=== PATIENT | female | born 2000 | race Caucasian/White ===

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

== ENCOUNTER 2021-07-22 11:16 | Outpatient (CLI) | payer BC, SELFPAY ==
[2021-07-28 02:07] LABS: Alternaria tenuis <0.10 kU/L (Class 0); Ash, White 0.51 kU/L (Class I); Aspergillus fumigatus <0.10 kU/L (Class 0); Bermuda Grass 3.14 kU/L (Class III); Birch 0.22 kU/L (Class 0/I); Black Walnut 0.39 kU/L (Class I); Cat Hair / Dander,Stand <0.10 kU/L (Class 0); Cedar, Mountain 0.41 kU/L (Class I); Cladosporium herbarum <0.10 kU/L (Class 0); Cockroach, American 0.35 kU/L (Class I); Cottonwood 0.22 kU/L (Class 0/I); D farinae Mite 0.65 kU/L (Class II); Dog Epithelia 0.25 kU/L (Class 0/I); Elm, American White 0.34 kU/L (Class I); Immunoglobulin E 135 IU/mL (6-495); Maple/Box Elder 0.48 kU/L (Class I); Mulberry, White 0.23 kU/L (Class 0/I); Oak, White 0.76 kU/L (Class II); Pecan 0.38 kU/L (Class I); Penicillium Notatum <0.10 kU/L (Class 0); Pigweed, Rough 0.43 kU/L (Class I); Ragweed, Short/Common 0.52 kU/L (Class I); Russian Thistle 0.48 kU/L (Class I); Sheep Sorrel 0.67 kU/L (Class II); Sycamore, American 0.58 kU/L (Class II)
[2021-07-28 15:35] LABS: Mouse Urine <0.10 kU/L (Class 0)
== END 2021-07-22 23:59 | disposition home or self-care (01) ==
PROVIDERS: Referring Provider Otolaryngology; Visit Provider Otolaryngology
DX: T78.40XA Allergy, unspecified, initial encounter (principal)
CPT/HCPCS: 36415; 82785; 86003

== ENCOUNTER 2021-07-31 09:06 | Outpatient (CLI) | payer BC, SELFPAY ==
[2021-08-07 19:07] LABS: Clam <0.10 kU/L (Class 0); Codfish <0.10 kU/L (Class 0); Corn 0.32 kU/L (Class I); Egg, White 0.16 kU/L (Class 0/I); Milk (Cow) 0.18 kU/L (Class 0/I); Peanut 0.56 kU/L (Class II); SCALLOP 0.23 kU/L (Class 0/I); Shrimp <0.10 kU/L (Class 0); Soybean 0.34 kU/L (Class I); Walnut, (Food) 0.23 kU/L (Class 0/I); Wheat 0.59 kU/L (Class II)
[2021-08-07 19:28] LABS: SESAME SEED 0.78 kU/L (Class II)
== END 2021-07-31 23:59 | disposition home or self-care (01) ==
LOC: LAB 09:09
PROVIDERS: Visit Provider Otolaryngology
DX: T78.40XA Allergy, unspecified, initial encounter (principal)
CPT/HCPCS: 36415; 86003

== ENCOUNTER → 2022-04-28 | Outpatient (CLI) | payer BC, SELFPAY ==
--- NOTE | 2022-04-28 15:58 | US_ITS ---
EXAM: US PELVIS TRANSABDOMINAL AND TRANSVAGINAL, COMPLETE CLINICAL INDICATION: OVARIAN CY TECHNIQUE: Transabdominal and transvaginal pelvic ultrasound was performed with grayscale and color Doppler imaging. Transvaginal imaging was used for better evaluation of the endometrium and adnexa. This report was created using [employer] report G[employer] technology. COMPARISON: None. FINDINGS: UTERUS/CERVIX: Uterus measures 8.5 x 3.6 x 4.8 cm. The endometrium measures 4 mm. Anteverted. There is no uterine mass. RIGHT OVARY: The right ovary measures 3.6 x 1.8 x 3.3 cm. Blood flow is present in the right ovary. LEFT OVARY: The left ovary measures 3.2 x 1.7 x 2.3 cm. Blood flow is present in the left ovary. FREE FLUID: None. BLADDER: The bladder measures 12.1 x 4.1 x 9.0 cm for a volume of 235 mL. TUBES, LINES AND DEVICES: There is an echogenic structure in the endometrium compatible with an intrauterine device. US/Pelvic (Non ) IMPRESSION: Intrauterine device in good position. No other abnormalities identified. Electronically Signed: Issac Martinez MD at 23:32 EST ,
== END | disposition home or self-care (01) ==
PROVIDERS: Referring Provider Obstetrics & Gynecology; Visit Provider Obstetrics & Gynecology
DX: N83.209 Unspecified ovarian cyst, unspecified side (principal)
CPT/HCPCS: 76830; 76856

== ENCOUNTER → 2022-08-20 | Outpatient (CLI) | payer BC, SELFPAY ==
--- NOTE | 2022-08-20 15:26 | US_ITS ---
EXAM: US PELVIS TRANSABDOMINAL AND TRANSVAGINAL, COMPLETE CLINICAL INDICATION: pelvic pain TECHNIQUE: Transabdominal and transvaginal pelvic ultrasound was performed with grayscale and color Doppler imaging. Transvaginal imaging was used for better evaluation of the endometrium and adnexa. COMPARISON: No relevant prior studies available. FINDINGS: UTERUS/CERVIX: 8.4 cm x 4.7 cm x 2.8 cm. There is no uterine mass. Normal endometrial stripe of 2 mm thickness. Midline IUD with shadowing, appears well-positioned the mid-upper uterus. RIGHT OVARY: Unremarkable. 3.1 cm x 2.1 cm x 1.9 cm. Non-enlarged, normal echogenicity. Blood flow is present in the right ovary. LEFT OVARY: There are multiple dominant follicles, the largest roughly 2 cm x 1.6 cm x 2.3 cm. Overall size 3.6 cm x 3 cm x 2.8 cm. Non-enlarged, normal echogenicity. Blood flow is present in the left ovary. FREE FLUID: None. BLADDER: Unremarkable as visualized. Wall is normal thickness for degree of distention. US/Pelvic w/ Transvaginal IMPRESSION: 2.3 cm left ovarian dominant follicle. Well-positioned IUD. Otherwise unremarkable exam. Electronically Signed: Elba Ho MD at 9:16 EDT ,
== END | disposition home or self-care (01) ==
LOC: US 15:25
PROVIDERS: Referring Provider Obstetrics & Gynecology; Visit Provider Obstetrics & Gynecology
DX: R10.2 Pelvic and perineal pain (principal)
CPT/HCPCS: 76830; 76856

== ENCOUNTER → 2022-11-13 | Outpatient (CLI) | payer BC, SELFPAY ==
[2022-11-13 14:18] LABS: Prolactin 11.7 ng/mL
== END | disposition home or self-care (01) ==
LOC: LAB 12:06
PROVIDERS: Referring Provider Nurse Practitioner Women's Health; Visit Provider Nurse Practitioner Women's Health
DX: N64.3 Galactorrhea not associated with childbirth (principal)
CPT/HCPCS: 36415; 84146

== ENCOUNTER 2023-07-22 10:30 | Day surgery (SDC) | payer BC, SELFPAY ==
[2023-07-22 10:54] VITALS: BP 130/81; PULSE 76; RESP 18; TEMP 36.1; O2SAT 99; BMI 26.6
[2023-07-22] MEDS: Lactated Ringers 1,000 ML 15 ML IV (10:57)
[2023-07-22 11:02] LABS: Internal QC Validated? YES +Cl - CLEAR BKGD; Pregnancy, Urine Negative Negative
--- NOTE | 2023-07-22 11:23 | PCM.HP.BLA ---
History and Physical Date of Admission: 07/22/23 Date of Service: 07/21/23 MR#: [id number] Acct: [id number] Name: JH LÓPEZ Rep #: [id number] : 2000 Provider: Dr. Catherine Edwards MD Age/Sex: 23/F Location: [facility] Status: Signed Intake Vital Signs 11/10/2310:33 07/21/2407:52 Height 5 ft 2 in 5 ft 2 in Weight: 154 lb BMI 28.1 BP 118/82 H Blood Pressure Location Rt brachial Position Sitting Respiration 17 Pulse 68 Pulse Source Monitor Pulse Oximetry (%) 98 Oxygen Delivery Method room air Intake Visit Reasons: CHRONIC GERD/CONSTIPATION Chief Complaint: chronic gerd/constipation Is patient in pain?: No Allergies loratadine [From Claritin] Allergy (Intermediate, Verified 07/22/23 10:53) Other Medications levonorgestrel 14 mcg/24 hrs (3 yrs) 13.5 mg intrauterine device (Ashley) 1 device intrauterine ONCE 04/11/22 [History Confirmed 07/22/23] omeprazole 40 mg capsule,delayed release 40 mg PO DAILY 07/21/23 [History Confirmed 07/22/23] polyethylene glycol 3350 17 gram/dose oral powder (Miralax) 4 g PO DAILY PRN constipation 07/21/23 [History Confirmed 07/22/23] PFSH Medical History (Updated 07/21/23 @ 14:56 by Jamilah Rader) Alcohol use Chronic cough Gastric reflux History of GI bleed Surgical History S/P tonsillectomy Family History Mother Breast cancer Cervical cancer Social History (Updated 07/21/23 @ 08:52 by Maria Luisa Francois) adopted: No number of children: 0 current occupational status: employed 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 Patient states she can also have nausea and vomiting worse with acidic food. Patient is never had an EGD recall colonoscopy. Patient denies any family history of inflammatory bowel disease or colon cancer. Patient was a started on omeprazole last week denies any change currently. Patient has bowel movements daily but states they are smaller in size denies any hard stools denies any hemorrhoids. Patient did have black stools the third week of June for about 2 to 3 days and then the fourth week of June had bloody stools dark red and bright red blood. ROS General General: Yes fatigue; No weight change, appetite, colon cancer, breast cancer or weakness HEENT HEENT: No difficulty swallowing, eye injury, eye surgery, swollen glands or hoarseness Endo Endocrine: No thyroid disease, diabetes mellitus, thyroid cancer, Hair loss, heat intolerance or cold intolerance Skin Skin: No rash or changing moles Musc Musculoskeletal: No back problems, arthritis, rheumatoid arthritis, gout or joint pain Cardio Cardiovascular: No murmur, pacemaker, heart disease, atrial fibrillation, high blood pressure, heart attack, heart stent, palpitations, shortness of breat with exertion or chest pain Psych Psychiatric: No depression, anxiety or hearing voices Resp Respiratory: No shortness of breath, Yes sleep apnea, No cough, No COPD, No asthma, No emphysema and No wheezing Gastro Gastrointestinal: Yes abdominal pain, No nausea or vomiting, No diarrhea, Yes constipation, Yes blood in stool, Yes acid reflux, No hemorrhoids, No ulcers, No gallbladder problem and Yes black,tarry stools Adam Hematologic: No blood thinners, No blood disorders, No bleeding, No anemia and No blood clots Neuro Neurologic: No system reviewed and no additional complaints, except as documented, No as per HPI, No abnormal gait, No abnormal hearing, No abnormal movements, No abnormal speech, No behavioral changes, No burning sensations, No confusion, No convulsions, No disequilibrium, No dizziness, No localized weakness, No frequent falls, No headache(s), No lack of coordination, No loss of vision, No memory loss, No numbness, No other visual disturbances, No radicular pain, No restless legs, No sensory deficit, No syncope, No tingling, No tremor(s), No weakness and No other Exam Const General: cooperative, healthy appearing, comfortable and no acute distress [facility] Head: normocephalic and atraumatic Neck Neck: supple Resp Effort & Inspection: normal respiratory effort Cardio Rate: regular rate GI Inspection: non-distended Palpation: soft, no hernias and nontender Skin General: no rashes or lesions noted Neuro General: CN's II-XI intact bilaterally Extrem General: normal to inspection Psych Mental Status: mental status grossly normal Attitude: cooperative Assessment and Plan Assessment and Plan (1) Acid reflux: Status: Acute (2) Blood in stool: Status: Acute Orders: Orders Colonoscopy Today EGD Today Plan I have discussed the above with the patient. I have offered the patient esophagogastroduodenoscopy and colonoscopy for evaluation. I have explained the risks/benefits of the procedure and described the procedure. I have discussed the risks with the patient, including but not limited to: infection, bleeding, perforation of the GI tract requiring emergency surgery, inability to complete the procedure, injury to any internal organs, complications of anesthesia, etc. - the patient understands and agrees to proceed. I have answered all the patient's questions to the patient's satisfaction and the patient has no further questions. The patient has been given instructions for the colon cleansing preparation. 1 day of clears, MiraLAX Dulcolaxprep. Catherine Edwards M.D. Pager: [phone] [facility] [address] [place] [address], [facility], [address] [place] [address] Office: [phone] Coding Level of Care Code Off vis,new,level 3 Diagnoses Acid reflux K21.9 Blood in stool K92.1 07/22/23 1122 <Electronically signed by Catherine Edwards MD> Date Catherine Edwards MD
--- NOTE | 2023-07-22 11:45 | IMM_PTH ---
PATIENT: JH LÓPEZ [place] [facility] [id number] AGE/SX: 23/F ROOM: RE07/22/[address]: Dr. Catheirne Edwards MD : 2000 BED: DIS: 07/22/2023 SPEC #: [id number] RECD: 07/23/23 09:08 STATUS: RADHA TOPHER #: [id number] MITCH: 07/22/23 11:[address]: Catherine Edwards DEPT: IMMUNOHISTOCHEMISTRY RECD BY: Gordon Cr ENTERED: 07/23/23 09:08 SP TYPE: IMMUNO OTHR DR: No Primary Care Phys Tissues: Stomach, NOS Procedures: H Pylori (initial) PHYSICIAN & INSTITUTION [place] [id number] SPECIMEN INFORMATION: Tissue Source: Antrum Clinical Info: Acid reflux, Blood in stool Specimen Number: [id number] CPT code: 58067 METHODOLOGY: Deparaffinized sections of prefer/formalin-fixed tissue or PAP/DQ stained slides are incubated with monoclonal/polyclonal antibodies/oligonucleotide probes. Localization is made via biotin free immunoperoxidase method. Appropriate controls are performed and reacted as expected. Results on target cell population are indicated in the following table: RESULTS: ANTIBODY / CLONE RESULT H Pylori (polyclonal) negative These tests were developed and their performance characteristics determined by [facility]. They may not have been cleared or approved by the U.S. Food and Drug Administration. The FDA has determined that such clearance or approval is not necessary. The above immunohistochemical/dualISH markers are ordered and reviewed by the Pathologist. INTERPRETATION: Antrum, biopsy: Negative for Helicobacter pylori organisms. RAISA/ 07/24/23
--- NOTE | 2023-07-22 11:45 | EGD_PTH ---
PATIENT: JH LÓPEZ [place]: [facility] [place][id number] AGE/SX: 23/F ROOM: RE07/22/[address]: Dr. Catherine Edwards MD : 2000 BED: DIS: 07/22/2023 SPEC #: [id number] RECD: 07/22/23 15:33 STATUS: RADHA TOPHER #: [id number] MITCH: 07/22/23 11:[address]: Catherine Edwards DEPT: SURGICAL PATHOLOGY RECD BY: Alison Morgan ENTERED: 07/23/23 12:01 SP TYPE: EGD BIOPSY SEJAL DR: No Primary Care Phys Tissues: Gastric mucous membrane Procedures: Surgery Specimen Level IV HEADER OPERATION: Colonoscopy, EGD biopsy PRE-OP DIAGNOSIS: Acid reflux, Blood in stool TISSUE SUBMITTED: Antrum biopsy MICROSCOPIC DIAGNOSIS Antrum, biopsy: Mild gastritis. See microscopic description and comment. RAISA/ 07/24/23 COMMENT The results of immunohistochemistry for Helicobacter pylori will be reported separately ([id number]). MICROSCOPIC DESCRIPTION Slides are reviewed. The specimen shows fragments of gastric mucosa with chronic inflammatory cell infiltrates in the lamina propria consisting of lymphocytes and plasma cells, consistent with mild chronic gastritis. GROSS DESCRIPTION Received in fixative is one container labeled with the patient's name and designated Antrum biopsy. The specimen consists of one irregular fragment of light ruiz soft tissue that measures 0.7 x 0.2 x 0.1 cm. The specimen is totally submitted in one cassette. RAISA/ 07/23/23 TC:3 CPT:50260
[2023-07-22 12:05] VITALS: BP 130/81; BP 78/52; PULSE 60; RESP 18; TEMP 36.3; O2SAT 98
--- NOTE | 2023-07-22 12:08 | OP.CCLET_ITS ---
07/22/2023 No Primary Care Physician Re : Upper GI endoscopy procedure for José Solorzano Dear Care Physician This procedure was performed on Saturday, July 22, 2023. My impressions and recommendations are as follows: Impressions : - Z-line variable, 40 cm from the incisors. - Normal examined duodenum. - Erythematous mucosa in the antrum. Biopsied. Recommendations : - Discharge patient to home. - Resume previous diet. - Continue present medications. - Use sucralfate tablets 1 gram PO QID for 1 week. - Await pathology results. My findings are described in the full procedure note, which is enclosed. If I can be of further assistance, please feel free to contact me at Doctor phone number(s): , Work: . Sincerely, MD Catherine Puentes MD 07/22/2023 12:07:39 PM This report has been signed electronically.
--- NOTE | 2023-07-22 12:08 | OP.EGD_ITS ---
Patient Name: José Solorzano Procedure Date: 07/22/2023 11:33 AM Date of : 2000 Age: 23 Procedure: Upper GI endoscopy Indications: Suspected gastro-esophageal reflux disease Providers: Catherine Edwards MD Medicines: Monitored Anesthesia Care Patient Profile: This is a 23 year old female. Complications: No immediate complications. Procedure: Pre-Anesthesia Assessment: - Prior to the procedure, a History and Physical was performed, and patient medications and allergies were reviewed. The patient's tolerance of previous anesthesia was also reviewed. The risks and benefits of the procedure and the sedation options and risks were discussed with the patient. All questions were answered, and informed consent was obtained. Prior Anticoagulants: The patient has taken no anticoagulant or antiplatelet agents. ASA Grade Assessment: Per anesthesia. After reviewing the risks and benefits, the patient was deemed in satisfactory condition to undergo the procedure. After obtaining informed consent, the endoscope was passed under direct vision. Throughout the procedure, the patient's blood pressure, pulse, and oxygen saturations were monitored continuously. The Colonoscope was introduced through the mouth, and advanced to the second part of duodenum. The upper GI endoscopy was accomplished without difficulty. The patient tolerated the procedure well. Scope In: 11:40:10 AM Scope Out: 11:44:33 AM Total Procedure Duration Time 0 hours 4 minutes 23 seconds Findings: The Z-line was variable and was found 40 cm from the incisors. The examined duodenum was normal. Diffuse mildly erythematous mucosa without bleeding was found in the gastric antrum. Biopsies were taken with a cold forceps for histology. Biopsies were taken with a cold forceps for Helicobacter pylori cultures. The cardia and gastric fundus were normal on retroflexion. Impression: - Z-line variable, 40 cm from the incisors. - Normal examined duodenum. - Erythematous mucosa in the antrum. Biopsied. Recommendation: - Discharge patient to home. - Resume previous diet. - Continue present medications. - Use sucralfate tablets 1 gram PO QID for 1 week. - Await pathology results. Procedure Code(s): --- Professional --- 17085, Esophagogastroduodenoscopy, flexible, transoral; with biopsy, single or multiple Diagnosis Code(s): --- Professional --- K22.89, Other specified disease of esophagus K31.89, Other diseases of stomach and duodenum CPT copyright 2021 [employer]. All rights reserved. The codes documented in this report are preliminary and upon insolvency consultant review may be revised to meet current compliance requirements. MD Catherine Puentes MD 07/22/2023 12:07:39 PM This report has been signed electronically. Number of Addenda: 0 Note Initiated On: 07/22/2023 11:33 AM
[2023-07-22 12:10] VITALS: BP 130/81; BP 99/68; PULSE 57; RESP 16; O2SAT 99
--- NOTE | 2023-07-22 12:11 | OP.COLON_ITS ---
Patient Name: José Solorzano Procedure Date: 07/22/2023 11:44 AM Date of : 2000 Age: 23 Procedure: Colonoscopy Indications: Rectal bleeding Providers: Catherine Edwards MD Medicines: Monitored Anesthesia Care Patient Profile: This is a 23 year old female. Last Colonoscopy: none. The patient's first colonoscopy is today. Complications: No immediate complications. Procedure: Pre-Anesthesia Assessment: - Prior to the procedure, a History and Physical was performed, and patient medications and allergies were reviewed. The patient's tolerance of previous anesthesia was also reviewed. The risks and benefits of the procedure and the sedation options and risks were discussed with the patient. All questions were answered, and informed consent was obtained. Prior Anticoagulants: The patient has taken no anticoagulant or antiplatelet agents. ASA Grade Assessment: Per anesthesia. After reviewing the risks and benefits, the patient was deemed in satisfactory condition to undergo the procedure. After I obtained informed consent, the scope was passed under direct vision. Throughout the procedure, the patient's blood pressure, pulse, and oxygen saturations were monitored continuously. The Colonoscope was introduced through the anus and advanced to the terminal ileum. The colonoscopy was performed without difficulty. The patient tolerated the procedure well. The quality of the bowel preparation was good. Scope In: 11:46:06 AM Scope Withdrawal Time 0 hours 8 minutes 50 seconds Scope Out: 11:59:20 AM Total Procedure Duration Time 0 hours 13 minutes 14 seconds Findings: The perianal and digital rectal examinations were normal. The entire examined colon appeared normal on direct and retroflexion views. Impression: - The entire examined colon is normal on direct and retroflexion views. - No specimens collected. Recommendation: - Discharge patient to home. - Resume previous diet. - Continue present medications. - Repeat colonoscopy [day] at age 46 for screening Procedure Code(s): --- Professional --- 90616, Colonoscopy, flexible; diagnostic, including collection of specimen(s) by brushing or washing, when performed (separate procedure) Diagnosis Code(s): --- Professional --- K62.5, Hemorrhage of anus and rectum CPT copyright 2021 [employer]. All rights reserved. The codes documented in this report are preliminary and upon stereo equipment salesperson review may be revised to meet current compliance requirements. MD Catherine Puentes MD 07/22/2023 12:10:37 PM This report has been signed electronically. Number of Addenda: 0 Note Initiated On: 07/22/2023 11:44 AM
--- NOTE | 2023-07-22 12:11 | OP.CCLET_ITS ---
07/22/2023 No Primary Care Physician Re : Colonoscopy procedure for José Solorzano Dear Care Physician This procedure was performed on Saturday, July 22, 2023. My impressions and recommendations are as follows: Impressions : - The entire examined colon is normal on direct and retroflexion views. - No specimens collected. Recommendations : - Discharge patient to home. - Resume previous diet. - Continue present medications. - Repeat colonoscopy [day] at age 46 for screening My findings are described in the full procedure note, which is enclosed. If I can be of further assistance, please feel free to contact me at Doctor phone number(s): , Work: . Sincerely, MD Catherine Puentes MD 07/22/2023 12:10:37 PM This report has been signed electronically.
[2023-07-22 12:15] VITALS: BP 109/82; BP 130/81; PULSE 69; RESP 16; O2SAT 100
[2023-07-22 12:20] VITALS: BP 115/71; BP 130/81; PULSE 62; RESP 16; TEMP 36.3; O2SAT 100
[2023-07-22 12:50] VITALS: BP 130/81
== END 2023-07-22 12:52 | disposition home or self-care (01) ==
LOC: SDC 10:31 → AC 10:32
PROVIDERS: Anesthesiology; Referring Provider Surgery; Visit Provider Surgery
PROC: 0DJD8ZZ Inspection of Lower Intestinal Tract, Via Natural or Artificial Opening Endoscopic (ICD-10-PCS; CPT 45378; principal; 2023-07-22 11:40)
DX: K29.70 Gastritis, unspecified, without bleeding (principal); K62.5 Hemorrhage of anus and rectum; K21.9 Gastro-esophageal reflux disease without esophagitis; Z79.899 Other long term (current) drug therapy
CPT/HCPCS: 45378; 43239; 81025; 88305; 88342; J7120; J2405

== ENCOUNTER → 2024-01-01 | Outpatient (CLI) | payer BC, SELFPAY ==
--- NOTE | 2024-01-01 11:14 | RAD_ITS ---
STUDY: X-RAY - ACUTE ABDOMINAL SERIES REASON FOR EXAM: Female, 23 years old. pain, evaluate colonic stool burden TECHNIQUE: Single view of the chest. Supine, and erect view(s) of the abdomen were obtained. COMPARISON: None. FINDINGS: The lungs are clear and expanded. Normal size heart. Normal mediastinum and claude. Normal visualized pulmonary arteries. Normal visualized aortic arch and descending thoracic aorta. There is a non-specific bowel gas pattern. No significant fecal retention. The soft tissue structures of the abdomen and pelvis are unremarkable. Normal visualized osseous structures. RAD/Acute Abdomen Inc Chest IMPRESSION: Normal x-ray examination of the chest, abdomen, and pelvis. Electronically Signed: Vlad Newman MD at 22:11 EDT ,
[2024-01-01 12:19] LABS: Absolute Lymphocyte Count 2.66 X10^3/uL (0.83-4.51); Absolute Neutrophil Count 3.4 X10^3/uL (2.0-7.7); Basophil# 0.05 X10^3/uL; Basophil% 0.8 % (0-1); Eosinophil# 0.07 X10^3/uL; Eosinophils% 1.1 % (0-5); Hematocrit 44.2 % (37-47); Hemoglobin 14.5 g/dL (12.0-15.0); Lymphocyte # 2.66 X10^3/ul (0.83-4.51); Lymphocyte % 40.2 % (19-41); Mean Corp Hgb Conc 32.8 g/dL (32-36); Mean Corpuscular Hgb 29.5 pg (27.0-32.0); Mean Platelet Vol. 9.6 fl (6.2-12.0); Monocyte# 0.46 X10^3/uL; Monocyte% 6.9 % (0-10); NRBC Flagged by Analyzer 0 % (0-5); Neutrophil # 3.37 X10^3/uL (2.7-7.7); Neutrophil % 50.8 % (47-70); Platelet Count 322 K/mm3 (150-450); RBC Distribution Width CV 11.9 % (11.6-14.6); RBC Distribution Width SD 39.5 fl (35.1-43.9); Red Blood Count 4.91 M/mm3 (4.2-5.4); White Blood Count 6.6 K/mm3 (4.4-11.0)
[2024-01-01 12:43] LABS: ALB/GLOB Ratio 1.4 RATIO (0.9-2.4); AST(SGOT) 16 U/L (15-37); Alanine Aminotransfer ALT/SGPT 18 U/L (13-56); Albumin, Serum 4.6 g/dL (3.2-5.0); Alkaline Phosphatase 67 U/L (45-117); Anion Gap 7 (5-15); BUN 11 mg/dL (7-18); BUN/Creat Ratio 13.7 RATIO (10-20); Calcium,Total 9.7 mg/dL (8.5-10.1); Chloride 106 mmol/L (98-107); EST Glomerular Filtration Rate 94 mL/min (>60); Est Glom Filt Rate - Afr Amer 114 mL/min (>60); Globulin 3.3 g/dL (2.2-4.2); Glucose 83 mg/dL (74-106); Magnesium 2.1 mg/dL (1.6-2.6); Potassium 3.4 mmol/L (3.5-5.1); Protein, Total 7.9 g/dL (6.4-8.2); Sodium Level 139 mmol/L (136-145)
[2024-01-05 03:07] LABS: Pancreatic Elastase, Fecal > 800 (>200)
[2024-01-05 08:15] LABS: Endomysial Antibody IgA Negative (Negative); Immunoglobulin A 146 mg/dL (87-352); t-Transglutaminase IgA <2 U/mL (0-3)
[2024-01-08 00:07] LABS: Calprotectin, Stool 18 ug/g (0-120); Fats, Neutral Normal (.); Fats, Total Normal (.)
== END | disposition home or self-care (01) ==
PROVIDERS: PCP Family Medicine; Referring Provider Family Medicine; Visit Provider Family Medicine
DX: K21.9 Gastro-esophageal reflux disease without esophagitis (principal); R14.0 Abdominal distension (gaseous); R19.7 Diarrhea, unspecified
CPT/HCPCS: 36415; 74022; 80053; 82653; 82705; 82784; 83516; 83630; 83735; 83993; 85025; 86255

== ENCOUNTER 2024-01-29 09:41 | Outpatient (CLI) | payer BC, SELFPAY ==
[2024-02-03 12:09] LABS: Beef <0.10 kU/L (Class 0); Chocolate 0.12 kU/L (Class 0/I); Codfish <0.10 kU/L (Class 0); Corn 0.22 kU/L (Class 0/I); Egg, Whole 0.14 kU/L (Class 0/I); Milk (Cow) 0.13 kU/L (Class 0/I); Mussels <0.10 kU/L (Class 0); Peanut 0.54 kU/L (Class I); Pork <0.10 kU/L (Class 0); Salmon <0.10 kU/L (Class 0); Shrimp <0.10 kU/L (Class 0); Soybean 0.22 kU/L (Class 0/I); Tuna <0.10 kU/L (Class 0); Wheat 0.45 kU/L (Class I)
== END 2024-01-29 23:59 | disposition home or self-care (01) ==
LOC: MFPLAB 09:45
PROVIDERS: PCP Family Medicine; Visit Provider Family Medicine
DX: Z91.018 Allergy to other foods (principal)
CPT/HCPCS: 36415; 86003; 86005

== ENCOUNTER → 2024-03-16 | Outpatient (CLI) | payer BC, SELFPAY ==
--- NOTE | 2024-03-16 08:02 | RAD_ITS ---
STUDY: X-RAY - ESOPHAGUS (BARIUM SWALLOW) WITH FLUOROSCOPY REASON FOR EXAM: Female, 23 years old. Dysphagia 12 mm tablet TECHNIQUE: 43 fluoroscopic view(s) of the esophagus were obtained following swallowing of barium. FLUOROSCOPY TIME (if supplied): (42 seconds) minutes/seconds. 4.5 mGy. COMPARISON: None. FINDINGS: There is no demonstrated esophageal foreign body. There is no demonstrated stricture or mucosal abnormality. Normal gastroesophageal junction, without a demonstrated hiatal hernia. The patient ingested a 12 mm tablet of barium without any difficulty. Normal visualized aortic arch and descending thoracic aorta. Normal visualized pulmonary parenchyma. Normal visualized osseous structures of the thorax. RAD/Esophagus Dual Contrast IMPRESSION: Normal plain film x-ray examination (barium swallow) of the esophagus. Electronically Signed: Reynold Gonzales MD at 8:40 EST ,
== END | disposition home or self-care (01) ==
LOC: RAD 08:02
PROVIDERS: PCP Family Medicine; Referring Provider Family Medicine; Visit Provider Family Medicine
DX: R13.10 Dysphagia, unspecified (principal)
CPT/HCPCS: 74221